=== PATIENT | female | born 1995 | race Caucasian/White ===

== ENCOUNTER 2017-09-20 12:36 | Emergency (ER) | payer BC ==
[2017-09-20 15:09] LABS: Hematocrit 41 % (35-47); Mean Corpuscular HGB Conc 34 g/dl (31-36); Mean Corpuscular Hemoglobin 29 pg (27-31); Mean Corpuscular Volume 86 fL (80-97); Mean Platelet Volume 10 um3 (7.4-10.4); Red Blood Count 4.78 10^6/ul (4.0-5.4); Red Cell Distribution Width 13 % (10.5-15); White Blood Count 7.4 10^3/ul (3.5-10.8)
[2017-09-20 15:22] LABS: ALT 10 U/L (7-52); AST 13 U/L (13-39); Albumin 4.2 g/dL (3.2-5.2); Alkaline Phosphatase 41 U/L (34-104); Anion Gap 8 mmol/L (2-11); BUN/Creatinine Ratio 9.7 (8-20); Blood Urea Nitrogen 7 mg/dL (6-24); C Reactive Protein 7.09 mg/L (< 5.00); CO2 Carbon Dioxide 26 mmol/L (22-32); Calcium 9.3 mg/dL (8.6-10.3); Chloride 103 mmol/L (101-111); EGFR African American 131.5 (>60); EGFR Non-African American 102.3 (>60); Globulin 3.7 g/dL (2-4); Glucose 84 mg/dL (70-100); Lipase 25 U/L (11.0-82.0); Potassium 3.3 mmol/L (3.5-5.0); Sodium 137 mmol/L (133-145); Total Protein 7.9 g/dL (6.4-8.9)
--- NOTE | 2017-09-20 16:10 | RAD ---
Indication: Left adnexal pain. Real-time sonography of the pelvis was performed. The uterus measures 6.3 x 2.5 x 3.0 cm. Endometrial echo measures 4 mm. The right ovary measures 3.2 x 1.7 x 2.0 cm. Left ovary measures 2.6 x 2.2 x 1.4 cm. Doppler interrogation demonstrates flow in both ovaries. IMPRESSION: Unremarkable pelvic ultrasound.
[2017-09-20 16:31] LABS: Urine Bilirubin Negative (Negative); Urine Glucose Negative (Negative); Urine Nitrite Negative (Negative)
[2017-09-20] MEDS ORDERED: traMADol TAB* 50 MG PO ONE (16:43)
[2017-09-20 17:02] VITALS: BP 119/76
--- NOTE | 2017-09-20 20:24 | ED ---
Mac Shipley Alfonso, scribed for Adalberto Arauz MD on 09/20/17 at 1444 . Abdominal Pain/Female - HPI Summary HPI Summary: This patient is a 22 year old F presenting to [facility] with a chief complaint of sharp abdominal pain since 1000 today. The patient rates the pain 7/10 in severity. Symptoms aggravated by nothing. Symptoms alleviated by nothing. Patient reports nausea. Patient denies vomiting, diarrhea, and urinary symptoms. She has not had a BM today. LMP is currently in the middle. She takes a BCP. She denies any PSHx. - History of Current Complaint Chief Complaint: EDAbdPain Stated Complaint: ABD PAIN Time Seen by Provider: 09/20/17 14:40 Hx Obtained From: Patient Onset/Duration: Sudden Onset, Lasting Hours, Still Present Timing: Constant Severity Currently: Moderate Pain Intensity: 7 Pain Scale Used: 0-10 Numeric Character: Sharp Aggravating Factor(s): Nothing Alleviating Factor(s): Nothing Associated Signs and Symptoms: Positive: Other: - nausea. Patient denies vomiting, diarrhea, and urinary symptoms. Allergies/Adverse Reactions: Allergies Allergy/AdvReac Type Severity Reaction Status Date / Time No Known Allergies Allergy Verified 09/20/17 12:41 PMH/Surg Hx/FS Hx/Imm Hx Opthamlomology History: Denies: Hx Legally Blind EENT History: Denies: Hx Deafness Infectious Disease History: No Infectious Disease History: Denies: Traveled Outside the [place] in Last 30 Days - Family History Known Family History: Negative: Cardiac Disease, Diabetes - Social History Alcohol Use: None Hx Substance Use: No Substance Use Type: Reports: None Hx Tobacco Use: No Smoking Status (MU): Never Smoked Tobacco Review of Systems Negative: Fever Positive: Abdominal Pain, Nausea. Negative: Vomiting, Diarrhea Positive: no symptoms reported All Other Systems Reviewed And Are Negative: Yes Physical Exam Triage Information Reviewed: Yes Vital Signs On Initial Exam: Initial Vitals Temp Pulse Resp BP Pulse Ox 97.4 F 83 16 145/82 96 09/20/17 12:40 09/20/17 12:40 09/20/17 12:40 09/20/17 12:40 09/20/17 12:40 Vital Signs Reviewed: Yes Appearance: Positive: Well-Appearing, No Pain Distress Skin: Positive: Warm, Skin Color Reflects Adequate Perfusion, Dry Head/Face: Positive: Normal Head/Face Inspection Eyes: Positive: Normal ENT: Positive: Normal ENT inspection Neck: Positive: Supple, Nontender Respiratory/Lung Sounds: Positive: Clear to Auscultation, Breath Sounds Present Cardiovascular: Positive: RRR Abdomen Description: Positive: Soft, Other: - LUQ and bilateral lower quadrant tenderness. Worse in the LLQ. Bowel Sounds: Positive: Present Musculoskeletal: Positive: Normal Neurological: Positive: Normal, Sensory/Motor Intact, Alert, Oriented to Person Place, Time, CN Intact II-III Psychiatric: Positive: Normal, Affect/Mood Appropriate Diagnostics - Vital Signs Vital Signs Temp Pulse Resp BP Pulse Ox 09/20/17 12:40 97.4 F 83 16 145/82 96 - Laboratory Lab Results: Lab Results 09/20/17 09/20/17 09/20/17 Range/Units 14:58 14:58 14:58 WBC 7.4 (3.5-10.8) 10^3/ul RBC 4.78 (4.0-5.4) 10^6/ul Hgb 14.0 (12.0-16.0) g/dl Hct 41 (35-47) % MCV 86 (80-97) fL MCH 29 (27-31) pg MCHC 34 (31-36) g/dl RDW 13 (10.5-15) % Plt Count 279 (150-450) 10^3/ul MPV 10 (7.4-10.4) um3 Neut % (Auto) 67.6 (38-83) % Lymph % (Auto) 23.1 L (25-47) % [place] % (Auto) 6.7 (1-9) % Eos % (Auto) 1.7 (0-6) % Baso % (Auto) 0.9 (0-2) % Absolute Neuts (auto) 5.0 (1.5-7.7) 10^3/ul Absolute Lymphs (auto) 1.7 (1.0-4.8) 10^3/ul Absolute Monos (auto) 0.5 (0-0.8) 10^3/ul Absolute Eos (auto) 0.1 (0-0.6) 10^3/ul Absolute Basos (auto) 0.1 (0-0.2) 10^3/ul Absolute Nucleated RBC 0.01 10^3/ul Nucleated RBC % 0.1 Sodium 137 (133-145) mmol/L Potassium 3.3 L (3.5-5.0) mmol/L Chloride 103 (101-111) mmol/L Carbon Dioxide 26 (22-32) mmol/L Anion Gap 8 (2-11) mmol/L BUN 7 (6-24) mg/dL Creatinine 0.72 (0.51-0.95) mg/dL Est GFR ( Amer) 131.5 (>60) Est GFR (Non-Af Amer) 102.3 (>60) BUN/Creatinine Ratio 9.7 (8-20) Glucose 84 (70-100) mg/dL Lactic Acid 1.2 (0.5-2.0) mmol/L Calcium 9.3 (8.6-10.3) mg/dL Total Bilirubin 0.30 (0.2-1.0) mg/dL AST 13 (13-39) U/L ALT 10 (7-52) U/L Alkaline Phosphatase 41 (34-104) U/L C-Reactive Protein 7.09 H (< 5.00) mg/L Total Protein 7.9 (6.4-8.9) g/dL Albumin 4.2 (3.2-5.2) g/dL Globulin 3.7 (2-4) g/dL Albumin/Globulin Ratio 1.1 (1-3) Lipase 25 (11.0-82.0) U/L Beta HCG, Quant < 0.60 mIU/mL Urine Color Urine Appearance Urine pH (5-9) Ur Specific [place] (1.010-1.030) Urine Protein (Negative) Urine Ketones (Negative) Urine Blood (Negative) Urine Nitrate (Negative) Urine Bilirubin (Negative) Urine Urobilinogen (Negative) Ur Leukocyte Esterase (Negative) Urine Glucose (Negative) Urine Ascorbic Acid (Negative) 09/20/17 Range/Units 16:05 WBC (3.5-10.8) 10^3/ul RBC (4.0-5.4) 10^6/ul Hgb (12.0-16.0) g/dl Hct (35-47) % MCV (80-97) fL MCH (27-31) pg MCHC (31-36) g/dl RDW (10.5-15) % Plt Count (150-450) 10^3/ul MPV (7.4-10.4) um3 Neut % (Auto) (38-83) % Lymph % (Auto) (25-47) % Amite % (Auto) (1-9) % Eos % (Auto) (0-6) % Baso % (Auto) (0-2) % Absolute Neuts (auto) (1.5-7.7) 10^3/ul Absolute Lymphs (auto) (1.0-4.8) 10^3/ul Absolute Monos (auto) (0-0.8) 10^3/ul Absolute Eos (auto) (0-0.6) 10^3/ul Absolute Basos (auto) (0-0.2) 10^3/ul Absolute Nucleated RBC 10^3/ul Nucleated RBC % Sodium (133-145) mmol/L Potassium (3.5-5.0) mmol/L Chloride (101-111) mmol/L Carbon Dioxide (22-32) mmol/L Anion Gap (2-11) mmol/L BUN (6-24) mg/dL Creatinine (0.51-0.95) mg/dL Est GFR ( Amer) (>60) Est GFR (Non-Af Amer) (>60) BUN/Creatinine Ratio (8-20) Glucose (70-100) mg/dL Lactic Acid (0.5-2.0) mmol/L Calcium (8.6-10.3) mg/dL Total Bilirubin (0.2-1.0) mg/dL AST (13-39) U/L ALT (7-52) U/L Alkaline Phosphatase (34-104) U/L C-Reactive Protein (< 5.00) mg/L Total Protein (6.4-8.9) g/dL Albumin (3.2-5.2) g/dL Globulin (2-4) g/dL Albumin/Globulin Ratio (1-3) Lipase (11.0-82.0) U/L Beta HCG, Quant mIU/mL Urine Color Straw Urine Appearance Clear Urine pH 7.0 (5-9) Ur Specific [place] 1.008 L (1.010-1.030) Urine Protein Negative (Negative) Urine Ketones Negative (Negative) Urine Blood Negative (Negative) Urine Nitrate Negative (Negative) Urine Bilirubin Negative (Negative) Urine Urobilinogen Negative (Negative) Ur Leukocyte Esterase Negative (Negative) Urine Glucose Negative (Negative) Urine Ascorbic Acid * H (Negative) Result Diagrams: 09/20/17 14:58 09/20/17 14:58 Lab Statement: Any lab studies that have been ordered have been reviewed, and results considered in the medical decision making process. - Additional Comments Diagnostic Additional Comments: Transvaginal US reveals, per radiologist, Unremarkable pelvic ultrasound. ED physician has reviewed this radiology report and agrees. Re-Evaluation - Re-Evaluation First Eval Re-Evaluation Time: 16:37 Change: Improved Comment: Pain is somewhat improved. Reviewed lab and imaging results. Abdominal Pain Fem Course/Dx - Course Course Of Treatment: Ms. Villela had a sudden LLQ pain while walking today that has been gradually improving. Her. W/U was negative. This may be as Mittleschmertz. - Diagnoses Provider Diagnoses: Abdominal pain Discharge - Discharge Plan Condition: Stable Disposition: HOME Patient Education Materials: Pelvic Pain in Women (ED) Referrals: Vinnie Sanchez MD [Primary Care Provider] - 3 Days Additional Instructions: RETURN TO THE EMERGENCY DEPARTMENT FOR CHANGING OR WORSENING SYMPTOMS. The documentation as recorded by the Mac ramos Alfonso accurately reflects the service I personally performed and the decisions made by me, Adalberto Arauz MD.
== END 2017-09-20 17:01 | disposition home or self-care (01) ==
LOC: ED 12:36
DX: R10.9 Unspecified abdominal pain (principal); R11.0 Nausea
CPT/HCPCS: 36415; 76830; 80053; 81003; 83605; 83690; 84702; 85025; 86140; 99282; A9270-GY

== ENCOUNTER 2018-01-30 01:44 | Emergency (ER) | payer BC ==
[2018-01-30] MEDS ORDERED: Ondansetron ODT TAB* 4 MG PO ONE (01:56)
[2018-01-30] MEDS ORDERED: Famotidine TAB* 20 MG PO ONE (01:56)
--- NOTE | 2018-01-30 02:47 | ED ---
Gareth Shipley Nikita, scribed for Chris Hines MD on 01/30/18 at 0201 . Substance Abuse/Use - HPI Summary HPI Summary: This patient is a 22 year old F BIBA to ED with a chief complaint of alcohol intoxication since [employer]. The patient reports she had 4 big glasses of wine. The patient rates the pain 0/10 in severity. Symptoms aggravated by nothing. Symptoms alleviated by nothing. Patient reports vomiting and abdominal pain ( sharp, since 1 year ago). Patient denies nausea. - History Of Current Complaint Stated Complaint: ETOH Time Seen by Provider: 01/30/18 01:50 Hx Obtained From: Patient Onset/Duration of Drug/ETOH Abuse: Minutes Ingestion History: Amount Ingested - 4 "big" glasses of wine Timing Of Abuse: Binge Use Aggravating Factor(s): Nothing Alleviating Factor(s): Nothing Associated Signs And Symptoms: Other: - Patient reports vomiting and abdominal pain (sharp, since 1 year ago). Patient denies nausea. - Allergies/Home Medications Allergies/Adverse Reactions: Allergies Allergy/AdvReac Type Severity Reaction Status Date / Time No Known Allergies Allergy Verified 09/20/17 12:41 PMH/Surg Hx/FS Hx/Imm Hx Endocrine/Hematology History: Denies: Hx Diabetes Cardiovascular History: Denies: Hx Coronary Artery Disease, Hx Hypertension Sensory History: Denies: Hx Legally Blind, Hx Deafness Opthamlomology History: Denies: Hx Legally Blind Psychiatric History: Reports: Hx Depression Infectious Disease History: No Infectious Disease History: Denies: Traveled Outside the [place] in Last 30 Days - Family History Known Family History: Negative: Cardiac Disease, Diabetes - Social History Alcohol Use: None Hx Substance Use: No Substance Use Type: Reports: None Hx Tobacco Use: No Smoking Status (MU): Never Smoked Tobacco Review of Systems Positive: Other - alcohol intoxication Positive: Abdominal Pain, Vomiting. Negative: Nausea All Other Systems Reviewed And Are Negative: Yes Physical Exam - Summary Physical Exam Summary: Appearance: Well appearing, no pain distress Skin: warm, dry, reflects adequate perfusion Head/face: normal, No evidence of injury to head Eyes: EOMI, pupils are dilated 6mm ENT: normal, moist mucous membranes Neck: supple, non-tender Respiratory: CTA, breath sounds present Cardiovascular: RRR, pulses symmetrical Abdomen: non-tender, soft Bowel: present Musculoskeletal: normal, strength/ROM intact, no injuries to extremities Neuro: normal, sensory motor intact, A&Ox3, no slurred speech Triage Information Reviewed: Yes Vital Signs On Initial Exam: Initial Vitals Temp Pulse Resp BP Pulse Ox 96.6 F 96 16 120/68 99 01/30/18 01:45 01/30/18 01:45 01/30/18 01:45 01/30/18 01:45 01/30/18 01:45 Vital Signs Reviewed: Yes Diagnostics - Vital Signs Vital Signs Temp Pulse Resp BP Pulse Ox 01/30/18 01:45 96.6 F 96 16 120/68 99 - Laboratory Lab Statement: Any lab studies that have been ordered have been reviewed, and results considered in the medical decision making process. Course/Dx - Course Course Of Treatment: ETOH today. Vomited once. Now sobered -- alert with clear speech. Steady gait. Sister is sober and will provide obs and safe ride. - Diagnoses Differential Diagnosis/HQI/PQRI: Positive: Other - alcohol intoxicaton Provider Diagnoses: Alcohol intoxication, Chronic abdominal pain Discharge - Discharge Plan Condition: Good Disposition: HOME Patient Education Materials: Alcohol Intoxication (ED) Referrals: Vinnie Sanchez MD [Primary Care Provider] - Additional Instructions: Do not drink to excess. Have your CT as scheduled on Wed. Do not drive or use machinery today. Return if worse, new symptoms or other concerns. The documentation as recorded by the Gareth ramos Nikita accurately reflects the service I personally performed and the decisions made by me, Chris Hines MD.
[2018-01-30 02:53] VITALS: BP 108/65
== END 2018-01-30 03:14 | disposition home or self-care (01) ==
LOC: ED 01:44
DX: F10.129 Alcohol abuse with intoxication, unspecified (principal); R10.9 Unspecified abdominal pain; G89.29 Other chronic pain
CPT/HCPCS: 99281; A9270-GY

== ENCOUNTER 2018-04-12 07:02 | Emergency (ER) | payer BC ==
[2018-04-12 07:17] VITALS: BP 126/75
[2018-04-12] MEDS ORDERED: Acetaminophen TAB* 325 MG PO ONE (07:29)
--- NOTE | 2018-04-12 07:40 | UC ---
Bhaskar Shipley Julia, scribed for Mireya Whitney MD on 04/12/18 at 0732 . HPI Febrile Illness - HPI Summary HPI Summary: This patient is a 23 year old F presenting to [facility] accompanied by her sister with a chief complaint of dull headache since last night that has worsened today with fever of 101.5, mild photophobia, and bilateral swollen submandibular lymph nodes. Pt reports mild sore throat. Denies sinus pain and ear pain. The patient rates the headache 6/10 in severity. Pt cannot take NSAIDS due to gastritis. Pt also states is unable to take APAP for gastritis - upon furter discussion pt states she is "not sure" Pt denies regular headaches. Recent strep throat contact. Pt sister who accompanies her also has a sore throat. Pt has not taken any medication to relieve her symptoms. LNMP was three weeks ago. Pt denies chance of . Pt drinking water in examination room without difficulty Medications reviewed with patient. - History of Current Complaint Chief Complaint: UCGeneralIllness Time Seen by Provider: 04/12/18 07:17 Hx Obtained From: Patient Hx Last Menstrual Period: 03/22/18 Onset/Duration: Started Days Ago Timing: Constant Initial Severity: Mild Current Severity: Moderate Pain Intensity: 6 Pain Scale Used: 0-10 Numeric Aggravating Factors: Other: - head movemtn Alleviating Factors: Nothing Associated Signs and Symptoms: Headache - Allergy/Home Medications Allergies/Adverse Reactions: Allergies Allergy/AdvReac Type Severity Reaction Status Date / Time NSAIDS (Non-Steroidal AdvReac Abdominal Verified 04/12/18 07:10 Anti-Inflamma Pain Home Medications: Home Medications Cholecalciferol TAB* [Vitamin D TAB*] 1,000 unit PO DAILY 04/12/18 [History Confirmed 04/12/18] sulfaSALAzine [Sulfasalazine] 500 mg PO DAILY 04/12/18 [History Confirmed ] PMH/Surg Hx/FS Hx/Imm Hx Previously Healthy: Yes Other GI/ History: gastritis - Surgical History Surgical History: None Surgery Procedure, Year, and Place: DENIES - Family History Known Family History: Negative: Cardiac Disease, Diabetes - Social History Occupation: Student Alcohol Use: Occasionally Substance Use Type: None Smoking Status (MU): Never Smoked Tobacco Review of Systems Constitutional: Fever Eyes: Photophobia ENT: Negative Respiratory: Negative Cardiovascular: Negative Neurological: Headache All Other Systems Reviewed And Are Negative: Yes Physical Exam Triage Information Reviewed: Yes Appearance: Well-Appearing, No Pain Distress, Well-Nourished Vital Signs: Initial Vital Signs Temp 100.5 F 04/12/18 07:10 Pulse 105 04/12/18 07:10 Resp 16 04/12/18 07:10 BP 126/75 04/12/18 07:10 Pulse Ox 97 04/12/18 07:10 Vital Signs Reviewed: Yes Eye Exam: Normal Eyes: Positive: Conjunctiva Clear, Other: - FERNY, EOM no injection Pt wearing sunglasses - removed and pt without photophobia for exam. Negative: Discharge ENT: Positive: Hearing grossly normal, Pharynx normal, Nasal congestion, TMs normal, Other - cerumen b/l canals - visible TM no fluid, erythema turbinates mildly inflammed + PND uvula midline no exudate, mild erythema. Negative: Tonsillar exudate Dental Exam: Normal Neck: Positive: Supple, Nontender, Other:. Negative: No Lymphadenopathy - + submandibular LA R> L, Nuchal Rigidity, Tenderness @ - full AROM Respiratory: Positive: Chest non-tender, Lungs clear, Normal breath sounds, No respiratory distress, No accessory muscle use Cardiovascular Exam: Normal Cardiovascular: Positive: RRR, No Murmur Abdominal Exam: Normal Abdomen Description: Positive: Nontender, No Organomegaly, Soft Bowel Sounds: Positive: Present Musculoskeletal Exam: Normal Musculoskeletal: Positive: Strength Intact, Other: - + SLE b/l without difficulty Neurological Exam: Normal Neurological: Positive: Alert Psychological Exam: Normal Psychological: Positive: Normal Response To Family Skin Exam: Normal Re-Evaluation - Re-Evaluation First Eval Comment: reviewed neg strep with pt. reviewed treatment plan of care. pt comfortable and in agreement with plan. pt texting on cellphone without difficulty. pt to call GI redarding APAP. rest. reviewed secretion precaution. pt requesting note for school presentation today Course/Dx - Course Course Of Treatment: Pt with 24 hours FIELDS, sore throat, submandibular LA. Pt with + fever has not taken antipyretic. AFter discussion regarding her diagnosis of gastritis- pt in agreement to take APAP. Will check strep. vital signs reviewed. Pt non toxic appearing. Suspect uri. If neg strep will recommend supportive care with return [place] or ED for any changes, concerns - Diagnoses Clinic Provider Diagnoses: fever. pharyngitis. headache Discharge - Sign-Out/Discharge Documenting (check all that apply): Discharge/Admit/Transfer - Discharge Plan Condition: Stable Disposition: HOME Patient Education Materials: Fever in Adults (ED), Acute Headache (ED) Forms: *School Release Referrals: Vinnie Sanchez MD [Primary Care Provider] - Additional Instructions: - STay well hydrated. Drink plenty of non-alcoholic, non-caffinated beverages - It is recommended you check with your GI specialist regarding Tylenol restrictions. It Tylenol is okay for you to take, it is recommended you take every 6 hours for discomfort or fever - get restful sleep -cold foods/liquids may be soothing to your throat - If you have persistent or uncontrolled fevers, vomiting, vision change, or develop any other symptoms ( for example cough, vomiting, abdominal pain, rash) or you have ANY concerns it is recommended you go to [facility] or the emergency department for further evaluation and testing - Billing Disposition and Condition Condition: STABLE Disposition: HOME The documentation as recorded by the Bhaskar ramos Julia accurately reflects the service I personally performed and the decisions made by me, Mireya Whitney MD.
== END 2018-04-12 08:11 | disposition home or self-care (01) ==
LOC: UCEAST 07:02
DX: J02.9 Acute pharyngitis, unspecified (principal); R50.9 Fever, unspecified; R51 Headache; Z88.6 Allergy status to analgesic agent
CPT/HCPCS: 87651; 99212; A9270-GY; G0463

== ENCOUNTER 2018-04-13 02:33 | Emergency (ER) | payer BC ==
[2018-04-13] MEDS ORDERED: NS 0.9% 1000 ML*IV.FLUID IV ONE (03:21)
[2018-04-13] MEDS ORDERED: Acetaminophen TAB* 325 MG PO ONE (03:23)
[2018-04-13 03:39] LABS: ABS Basophils 0 10^3/ul (0-0.2); ABS Eosinophils 0.1 10^3/ul (0-0.6); ABS Lymphocytes 0.3 10^3/ul (1.0-4.8); ABS Monocytes 0.4 10^3/ul (0-0.8); ABS Neutrophils 5.7 10^3/ul (1.5-7.7); ABS Nucleated RBC 0 10^3/ul; Eosinophil % 1.2 % (0-6); Hematocrit 39 % (35-47); Hemoglobin 13.2 g/dl (12.0-16.0); Mean Corpuscular HGB Conc 34 g/dl (31-36); Mean Corpuscular Hemoglobin 28 pg (27-31); Mean Corpuscular Volume 83 fL (80-97); Mean Platelet Volume 9.8 um3 (7.4-10.4); Nucleated Red Blood Cells % 0; Platelet Count 212 10^3/ul (150-450); Red Cell Distribution Width 14 % (10.5-15); White Blood Count 6.4 10^3/ul (3.5-10.8)
[2018-04-13 03:54] LABS: EGFR Non-African American 104.6 (>60)
[2018-04-13 04:56] VITALS: BP 121/63
--- NOTE | 2018-04-15 21:16 | ED ---
Rahat Shipley Sixian, scribed for Adalberto Boyle MD on 04/13/18 at 0318 . Complex/Multi-Sys Presentation - HPI Summary HPI Summary: This patient is a 23 year old F presenting to ED with a chief complaint of fever since 0800 today. The patient rates the pain 7/10 in severity. Symptoms aggravated and alleviated by nothing. Patient reports swollen neck glands, body aches, headache, abdominal pain, some nausea, and decreased appetite. Patient denies sore throat, diarrhea, coughing. - History Of Current Complaint Chief Complaint: EDFever Time Seen by Provider: 04/13/18 02:49 Hx Obtained From: Patient Onset/Duration: Gradual Onset, Lasting Hours, Still Present Timing: Constant Severity Currently: Moderate - 7/10 Aggravating Factor(s): nothing Alleviating Factor(s): nothing Associated Signs And Symptoms: Positive: Other - Patient reports swollen neck glands, body aches, headache, abdominal pain, some nausea, and decreased appetite. Patient denies sore throat, diarrhea, coughing. - Allergies/Home Medications Allergies/Adverse Reactions: Allergies Allergy/AdvReac Type Severity Reaction Status Date / Time NSAIDS (Non-Steroidal AdvReac Abdominal Verified 04/12/18 07:10 Anti-Inflamma Pain PMH/Surg Hx/FS Hx/Imm Hx Endocrine/Hematology History: Denies: Hx Diabetes Cardiovascular History: Denies: Hx Coronary Artery Disease, Hx Hypertension, Hx Pacemaker/ICD History: Denies: Hx Renal Disease Sensory History: Denies: Hx Legally Blind, Hx Deafness, Hx Hearing Aid Opthamlomology History: Denies: Hx Legally Blind Psychiatric History: Reports: Hx Depression Denies: Hx Panic Disorder - Surgical History Surgery Procedure, Year, and Place: DENIES Infectious Disease History: No Infectious Disease History: Denies: Traveled Outside the [place] in Last 30 Days - Family History Known Family History: Negative: Cardiac Disease, Diabetes - Social History Alcohol Use: Occasionally Hx Substance Use: No Substance Use Type: Reports: None Hx Tobacco Use: No Smoking Status (MU): Never Smoked Tobacco Review of Systems Constitutional: Other - decreased appetite Positive: Fever ENT: Other - swollen neck glads Negative: Sore Throat Negative: Cough Positive: Abdominal Pain, Nausea. Negative: Diarrhea Positive: Myalgia Positive: Headache All Other Systems Reviewed And Are Negative: Yes Physical Exam - Summary Physical Exam Summary: Appearance: Well-appearing, Well-nourished, lying in bed comfortably Skin: Warm, dry, no obvious rash Eyes: sclera anicteric, no conjunctiva pallor ENT: mucous membranes moist, pharynx appears normal. adenopathy Neck: Supple, nontender Respiratory: Clear to auscultation, no signs of respiratory distress Cardiovascular: Normal S1, S2. Early systolic murmur Normal distal pulses in tibial and radial bilaterally. Abdomen: Soft, nontender, normal active bowel sounds present Musculoskeletal: Normal, Strength/ROM Intact Neurological: A&Ox3, awake and alert, mentation is normal, speech is fluent and appropriate Psychiatric: affect is normal, does not appear anxious or depressed Triage Information Reviewed: Yes Vital Signs On Initial Exam: Initial Vitals Temp Pulse Resp BP Pulse Ox 101.3 F 116 14 126/77 96 04/13/18 02:43 04/13/18 02:43 04/13/18 02:43 04/13/18 02:43 04/13/18 02:43 Vital Signs Reviewed: Yes Diagnostics - Vital Signs Vital Signs Temp Pulse Resp BP Pulse Ox 04/13/18 02:43 101.3 F 116 14 126/77 96 - Laboratory Lab Results: Lab Results 04/13/18 04/13/18 04/13/18 Range/Units 03:29 03:29 03:29 WBC 6.4 (3.5-10.8) 10^3/ul RBC 4.70 (4.0-5.4) 10^6/ul Hgb 13.2 (12.0-16.0) g/dl Hct 39 (35-47) % MCV 83 (80-97) fL MCH 28 (27-31) pg MCHC 34 (31-36) g/dl RDW 14 (10.5-15) % Plt Count 212 (150-450) 10^3/ul MPV 9.8 (7.4-10.4) um3 Neut % (Auto) 88.3 H (38-83) % Lymph % (Auto) 4.0 L (25-47) % Boyle % (Auto) 6.4 (0-7) % Eos % (Auto) 1.2 (0-6) % Baso % (Auto) 0.1 (0-2) % Absolute Neuts (auto) 5.7 (1.5-7.7) 10^3/ul Absolute Lymphs (auto) 0.3 L (1.0-4.8) 10^3/ul Absolute Monos (auto) 0.4 (0-0.8) 10^3/ul Absolute Eos (auto) 0.1 (0-0.6) 10^3/ul Absolute Basos (auto) 0 (0-0.2) 10^3/ul Absolute Nucleated RBC 0 10^3/ul Nucleated RBC % 0 Sodium 135 L (139-145) mmol/L Potassium TNP Chloride 101 (101-111) mmol/L Carbon Dioxide 25 (22-32) mmol/L Anion Gap 9 (2-11) mmol/L BUN 10 (6-24) mg/dL Creatinine 0.70 (0.51-0.95) mg/dL Est GFR ( Amer) 134.6 (>60) Est GFR (Non-Af Amer) 104.6 (>60) BUN/Creatinine Ratio 14.3 (8-20) Glucose 106 H (70-100) mg/dL Lactic Acid 0.7 (0.5-2.0) mmol/L Calcium 9.2 (8.6-10.3) mg/dL Total Bilirubin 0.40 (0.2-1.0) mg/dL AST TNP ALT 10 (7-52) U/L Alkaline Phosphatase 54 (34-104) U/L Total Protein 7.6 (6.4-8.9) g/dL Albumin 4.3 (3.2-5.2) g/dL Globulin 3.3 (2-4) g/dL Albumin/Globulin Ratio 1.3 (1-3) Monoscreen Negative (Negative) Result Diagrams: 18 03:29 18 03:29 Lab Statement: Any lab studies that have been ordered have been reviewed, and results considered in the medical decision making process. Re-Evaluation - Re-Evaluation First Eval Re-Evaluation Time: 04:40 Change: Improved - Her fever has decreased, she is feeling better and the nature of her illness was discussed. Complex Multi-Symp Course/Dx - Diagnoses Differential Diagnoses/HQI/PQRI: Sepsis Provider Diagnoses: Lymphadenitis Is Visit Related: No Discharge - Sign-Out/Discharge Documenting (check all that apply): Discharge/Admit/Transfer - Discharge Plan Condition: Good Disposition: HOME Patient Education Materials: Fever in Adults (ED) Referrals: Vinnie Sanchez MD [Primary Care Provider] - Additional Instructions: RETURN TO THE EMERGENCY DEPARTMENT FOR CHANGING OR WORSENING SYMPTOMS. - Billing Disposition and Condition Condition: GOOD Disposition: HOME The documentation as recorded by the Rahat ramos Sixian accurately reflects the service I personally performed and the decisions made by me, Adalberto Boyle MD.
== END 2018-04-13 04:55 | disposition home or self-care (01) ==
LOC: ED 02:33
DX: I88.9 Nonspecific lymphadenitis, unspecified (principal)
CPT/HCPCS: 36415; 80053; 83605; 85025; 86308; 96360; 99282